=== PATIENT | female | born 2000 | race Two or more races ===

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

== ENCOUNTER 2019-12-12 11:20 | Emergency (ER) | payer SELFPAY ==
[~2019-12-12] VITALS: Ht 165.1 cm; Wt 81.6 kg
[2019-12-12 11:37] VITALS: BP 136/84
== END 2019-12-12 12:10 | disposition home or self-care (01) ==
LOC: ER 11:20
DX: U07.1 COVID-19 (principal)
CPT/HCPCS: 71045; 99284; U0003